=== PATIENT | female | born 1955 | race Caucasian/White ===

== ENCOUNTER → 2018-06-09 | Outpatient (REF) ==
[~2018-06-09] MED LIST: ALPR-434 PO; IOPAMIDOL 76% 100 ML INFUS BTL 100 ML ONE; LORA-1455 PO; NEBI5TAB PO; SERT-1 PO; TRAZ50TA34 PO
--- NOTE | 2018-06-09 10:00 | RADIOLOGY IMAGING REPORT ---
FACILITY: [facility] PATIENT NAME: Luciano Hastings : 1955 MR: [id number] V: [id number] EXAM DATE: ORDERING PHYSICIAN: EMI JOHNSON TECHNOLOGIST: Location: [facility] - [place] Patient: Luciano Hastings : 1955 Visit/Account:[id number] Date of Sevice: 06/09/2018 CT ABDOMEN PELVIS W/ CON HISTORY: Abdominal pain x8 months. Possible hernias. TECHNIQUE: Following administration of IV contrast contiguous axial images acquired through the abdom en/pelvis. Coronal and sagittal reformatting also performed. One of the following dose optimization techniques was utilized in the performance of this exam: Automated exposure control; adjustment of t he mA and/or kV according to the patient's size; or use of an iterative reconstruction technique. S pecific details can be referenced in the facility's radiology CT exam operational policy. CONTRAST: 70 mL Isovue-370 COMPARISON: None. FINDINGS: Visualized lung bases: Negative. Hepatobiliary: There is a 9 mm indeterminate hypodense nodule in the posterior liver (axial image 22 series 2, coronal image 62). There is no evidence of enhancement. There is pneumobilia likely related to a remote sphincterotomy. Patient status post cholecystectomy. A loop of small bowel insinuates into the benjie hepatis. Spleen: Several small calcified granulomas noted in the spleen. Adrenals: Right adrenal gland normal. There is a relatively low density circumscribed mass in the l eft adrenal gland measuring 2.3 x 1.8 cm. Postcontrast it measures 48 Hounsfield units. Pancreas: Negative. Kidneys ureters or bladder: Tiny subcentimeter cyst noted left kidney. Kidneys are otherwise normal. Ureters and urinary bladder unremarkable. Genitalia: Negative. GI: Small bowel unremarkable. Colon is likewise unremarkable with moderate fecal material noted. N o evidence of diverticuli. Appendix is retrocecal and normal. Vessels/spaces/nodes: Small lymph nodes are seen along the mesenteric root (axial images 80-91 serie s 2) with largest measuring approximately 1 cm diameter. They are within normal range in size. Ther e is no retroperitoneal adenopathy. Bones/soft tissues: Osseous structures unremarkable for patient age. Mild reactive endplate changes noted in lower thoracic spine. No focal disc space narrowing. There is an no evidence of inguinal or abdominal hernias. Additional findings: None pertinent. IMPRESSION: No acute pathology identified. Remote cholecystectomy with probable sphincterotomy with pneumobilia noted. 9 mm hypodense hepatic nodule which is indeterminate although probably benign. Left adrenal mass 2.8 cm maximum dimension. This might represent a benign adrenal adenoma although p rimary adrenal neoplasm or metastasis cannot be excluded (although statistically less likely). Recom mend follow-up adrenal MRI or CT with and without contrast. Please specify adrenal adenoma protocol. Examination otherwise unremarkable. No evidence of hernia which was a clinical concern. Report Dictated By: Fletcher Mosquera MD at 06/09/2018 9:40 AM Report E-Signed By: Fletcher Mosquera MD at 06/09/2018 9:55 AM WSN:[id number]
== END ==
LOC: CT 06-08 01:44
PROVIDERS: ATTEND Nurse Practitioner
DX: R10.32 Left lower quadrant pain (principal)
CPT/HCPCS: 74177; Q9967

== ENCOUNTER → 2018-06-30 | Outpatient (REF) ==
[~2018-06-30] MED LIST changes: -IOPAMIDOL 76% 100 ML INFUS BTL 100 ML ONE
--- NOTE | 2018-06-30 16:09 | RADIOLOGY IMAGING REPORT ---
FACILITY: [facility] - [place] PATIENT NAME: Luciano Hastings : 1955 MR: [id number] V: [id number] EXAM DATE: ORDERING PHYSICIAN: NORMA FRANCO TECHNOLOGIST: Location: [facility] - [place] Patient: Luciano Hastings : 1955 Visit/Account:[id number] Date of Sevice: 06/30/2018 MR ABDOMEN W/O CON HISTORY: Adrenal mass found on CT ADDITIONAL HISTORY: None. TECHNIQUE: TECHNIQUE: Multiplanar multisequence magnetic resonance imaging of the abdomen without i ntravenous contrast. CONTRAST: None COMPARISON: CT of abdomen pelvis June 09, 2018 FINDINGS: Visualized lung bases: Grossly unremarkable. Liver: There is a 6 mm cyst in the posterior lateral right lobe the liver there is an additional subt le 1 cm mass posterior aspect of the dome of the liver demonstrates weak increased T2 signal intensit y and T1 hypointensity. There is no restricted diffusion. This is not ideally characterized given t he lack of contrast. Gallbladder: Surgically absent Bile ducts: Pneumobilia as seen on the recent CT Spleen: Negative. Adrenal glands: There is a 2.3 x 1.6 x 2.6 cm left adrenal mass. This mass demonstrates signal dropo ut on the opposed phase imaging which would be consistent with an adenoma. Right adrenal gland appea rs unremarkable Pancreas: Negative. Kidneys: Negative. Vessels/spaces/nodes: No bulky adenopathy or ascities. Visualized GI: Grossly unremarkable. Bones/soft tissues: Unremarkable. IMPRESSION: There is a 2.3 x 1.6 x 2.6 cm left adrenal mass with signal characteristics consistent with an adenom a 6. Moment or cyst posterior right lobe the liver 1 cm mass posterior dome of the liver which is not ideally characterize given the lack of contrast. This likely represents an incidental hemangioma however other solid mass is not totally excluded if o f concern this could be further evaluated with ultrasound or three-phase CT of the liver Post surgical changes from a cholecystectomy Report Dictated By: Kailey Agarwal MD at 06/30/2018 3:41 PM Report E-Signed By: Kialey Agarwal MD at 06/30/2018 4:04 PM WSN:[email or web address]
== END ==
LOC: MRI 00:49
PROVIDERS: ATTEND Nurse Practitioner
DX: E27.9 Disorder of adrenal gland, unspecified (principal)
CPT/HCPCS: 74181

== ENCOUNTER → 2018-07-14 | Outpatient (REF) ==
--- NOTE | 2018-07-14 10:54 | RADIOLOGY IMAGING REPORT ---
FACILITY: [facility] [place] PATIENT NAME: Luciano Hastings : 1955 MR: [id number] V: [id number] EXAM DATE: ORDERING PHYSICIAN: NORMA FRANCO TECHNOLOGIST: Location: Patient: Luciano Hastings : 1955 Visit/Account:[id number] Date of Sevice: 07/14/2018 LIVER HISTORY: Liver mass on MRI, pain COMPARISON: MRI abdomen June 30, [address] abdomen June 09, 2018 FINDINGS: Gallbladder: Absent Liver: In the anterior aspect of the right lobe in the anterior aspect of the right lobe the liver th ere is a 6 x 7 mm slightly echogenic nodule. This is not well-seen on the prior CT nor on the prior MR. In the lateral aspect of the right lobe there is a 6 mm echogenic nodule which likely represents the area of increased T2 signal intensity on recent MR may represent hemangioma although other solid lesions not excluded. The 1 cm mass posterior aspect of the dome of the liver seen on the recent MR is not well seen sonographically.. This was hypoattenuating on the recent CT. This may represent a hemangioma although additional solid lesions not excluded. Common duct: Normal, 2.4 mm diameter. Pancreas: Partially obscured by bowel, visualized aspects unremarkable. Right kidney: Negative. Upper abdominal aorta and IVC: Patent. Ascites: None visualized. IMPRESSION: There are two echogenic masses seen in the right lobe the liver one is anterior and one is lateral. The anterior lesion is not seen on the prior CT or MR. The lateral mass measuring 6 mm is present on the prior MR demonstrated an area of increased T2 signal intensity. The 1 cm mass posterior aspect dome liver cyst seen on the recent MR demonstrating weak increased T2 signal intensity was hypoattenu ating on the recent CT. This was not well-seen by ultrasound today. In light of the above findings either a three phase CT of the liver or an MR of the liver with and wi thout contrast recommended since the prior MR was done without contrast in the prior CT was single ph ase. Report Dictated By: Kailey Agarwal MD at 07/14/2018 10:07 AM Report E-Signed By: Kailey Agarwal MD at 07/14/2018 10:49 AM WSN:[email or web address]
== END ==
LOC: US 00:30
PROVIDERS: ATTEND Nurse Practitioner
DX: R10.9 Unspecified abdominal pain (principal); K76.9 Liver disease, unspecified
CPT/HCPCS: 76705

== ENCOUNTER → 2018-08-05 | Outpatient (REF) ==
[~2018-08-05] MED LIST changes: +GADOBENATE 529MG/1ML 15ML VIAL IVP ONE; +NS(*) 0.9% 50 ML BAG 0 ML ONE; +NS(*) 0.9% 50 ML BAG 50 ML ONE
--- NOTE | 2018-08-05 15:36 | RADIOLOGY IMAGING REPORT ---
FACILITY: [facility] PATIENT NAME: Luciano Hastings : 1955 MR: [id number] V: [id number] EXAM DATE: ORDERING PHYSICIAN: NORMA FRANCO TECHNOLOGIST: Location: [facility] - [place] Patient: Luciano Hastings : 1955 Visit/Account:[id number] Date of Sevice: 08/05/2018 MR ABDOMEN W & W/O CON COMPARISON: Noncontrast MR abdomen 06/30/2018, 07/14/2018 ultrasound , postcontrast CT abdomen 9 HISTORY: Two echogenic masses right lobe liver found on prior ultrasounds. Remote history of cholec ystectomy. TECHNIQUE: Pre and post contrast multiplanar MRI of the abdomen utilizing T1 weighted and fluid sens itive sequences. Diffusion-weighted imaging was performed. CONTRAST: 13 mL gadopentetate intravenously MRI ABDOMEN FINDINGS: LIVER: Normal size, morphology and background signal intensity with heterogeneous arterial/early pha se enhancement throughout the liver probably due to perfusional variation. *Enhancing segment six liver lesion with T2 signal on series 11 image 18 and enhancement isointense t o blood pool on subsequent images consistent with a flash filling hemangioma. Mild restricted diffus ion. This measures only about 6 x 6 mm in size on series 13 image 33. *Subtle, vague focus of increased T2 signal in segment seven more medially measuring about 7 x 11 mm on series 11 image 23, with some enhancement isointense to blood pool on a couple of venous phase sca ns, for example series 20 image 20, not seen on all scans probably due to adjacent diaphragmatic kyrie on artifact. Mild restricted diffusion. This is also most consistent with a hemangioma. *Subtle T2 hyperintense nonenhancing 3 mm lesion in segment five anteriorly series 2 image 17 consist ent with a benign cyst. BILIARY: Absent gallbladder. No intra-or extrahepatic bile duct dilatation. SPLEEN: Unremarkable. Normal size. PANCREAS: No solid lesions or evidence of pancreatitis or ductal dilatation. 3 mm cystic lesion ky sing from the nondilated main pancreatic duct mid pancreatic body series 2 image 12, series 3 image 2 3 with a similar 3 mm lesion along the dorsal margin of the uncinate process series 2 image 15, serie s 3 image 19. These may be focally dilated side branch radicals or tiny cystic neoplasms. ADRENALS: Hypoenhancing 2.2 cm left adrenal lesion with signal dropout on opposed phase images again consistent with a benign adenoma. KIDNEYS: Unremarkable. GI/MESENTERY: Unremarkable. VASCULAR: Unremarkable. LYMPH NODES: No adenopathy. BONES: Unremarkable. OTHER: Negative. IMPRESSION: 1. Two subtle right lobe liver lesions, one in segment six and one in segment seven, both with featu res of hemangioma. 2. Left adrenal adenoma. 3. Cholecystectomy. 4. 3 mm cystic lesions, pancreatic uncinate process and body. Based on recommendations from the ACR , single 2 year follow-up imaging with pancreas protocol MRI (with and without contrast), is recomme nded to demonstrate stability. If there is no interval change, no further surveillance is recommende d. Reference: ACR. Management of Incidental Pancreatic Cysts: A White Paper of the ACR Incidental Findi ngs Committee JACR. Jul, 2016. Report Dictated By: Ian Cardenas at 08/05/2018 3:00 PM Report E-Signed By: Ian Cardenas at 08/05/2018 3:30 PM WSN:[id number]
== END ==
LOC: MRI 08-03 00:26
PROVIDERS: ATTEND Nurse Practitioner
DX: D35.02 Benign neoplasm of left adrenal gland (principal); Z90.49 Acquired absence of other specified parts of digestive tract; K76.89 Other specified diseases of liver
CPT/HCPCS: 74183; A9577; J7050

== ENCOUNTER → 2018-08-24 | Outpatient (REF) | payer SELFPAY ==
[~2018-08-24] MED LIST changes: -GADOBENATE 529MG/1ML 15ML VIAL IVP ONE; -NS(*) 0.9% 50 ML BAG 0 ML ONE; -NS(*) 0.9% 50 ML BAG 50 ML ONE
[2018-08-24 18:47] LABS: PLATELET COUNT, AUTOMATED 223 K/uL (150-450)
== END ==
LOC: ZZSTITCHES 18:22
PROVIDERS: ATTEND Physician Assistant
DX: R07.89 Other chest pain (principal)
CPT/HCPCS: 82040; 82247; 82310; 82374; 82435; 82565; 82947; 84075; 84132; 84155; 84295; 84450; 84460; 84484; 84520; 85025

== ENCOUNTER → 2018-10-25 | Outpatient (REF) ==
[~2018-10-25] MED LIST changes: +METF-450 PO; -TRAZ50TA34 PO; +TRAZ50TA52 PO
--- NOTE | 2018-10-25 10:55 | EKG ---
FACILITY: [facility] PATIENT NAME: MAICOL SMITH : [id number] MR: [id number] V: [id number] EXAM DATE: ORDERING PHYSICIAN: NORMA FRANCO TECHNOLOGIST: LETICIA Rod Reason : PRE-OP Blood Pressure : / mmHG Vent. Rate : 056 BPM Atrial Rate : 056 BPM P-R Int : 140 ms QRS Dur : 092 ms QT Int : 462 ms P-R-T Axes : 014 083 081 degrees QTc Int : 445 ms Sinus bradycardia Otherwise normal ECG When compared with ECG of 15-JUN-2013 14:10, No significant change was found Confirmed by Christian Mehta ([id number]) on 10/26/2018 12:36:38 AM Referred By: JOAN Confirmed By:Christian Schumacher
== END ==
LOC: RESP 10:11
PROVIDERS: ATTEND Nurse Practitioner
DX: Z01.810 Encounter for preprocedural cardiovascular examination (principal)
CPT/HCPCS: 93005

== ENCOUNTER → 2018-10-28 | Outpatient (CLI) | payer OTHER ==
--- NOTE | 2018-10-28 13:53 | RADIOLOGY IMAGING REPORT ---
FACILITY: [facility] [place] PATIENT NAME: Luciano Hastings : 1955 MR: [id number] V: [id number] EXAM DATE: ORDERING PHYSICIAN: SILVANO MARTINEZ TECHNOLOGIST: Location: [facility] Patient: Luciano Hastings : 1955 Visit/Account:[id number] Date of Sevice: 10/28/2018 Clinical history: Screening, postmenopausal. Comparison: None. LUMBAR SPINE: The bone mineral density (BMD) measured from L1-L4 correlates with a Z-score of -1.2 and a T-score of -2.7 which is osteoporosis as defined by the World Health Organization. The corresponding risk of f racture in the lumbar spine is increased 6-8 times compared with a young adult reference population. HIP: Bone mineral density (BMD) measured in the left total hip region correlates with a Z-score of -0.1 an d a T-score of -1.2 which is osteopenia as defined by the World Health Organization. The correspondi ng risk of fracture in the hip is increased 2-3 times compared with a young adult reference populatio n. Bone mineral density (BMD) measured in the left femoral neck correlates with a Z-score of -0.5 and a T-score of -1.9 which is osteopenia as defined by the World Health Organization. The corresponding r isk of fracture in the hip is increased 3-4 times compared with a young adult reference population. Bone mineral density (BMD) measured in the left Femoral Neck region measures 0.779 g/cm2. Impression: 1. Lumbar spine: Osteoporosis. 2. Left total hip: Osteopenia. 3. Left femoral neck: Osteopenia 4. Left femoral neck Bone Mineral Density is 0.779 g/cm2 The next DEXA scan of this patient should include the following sites: Lumbar spine and left hip. FRAX? WHO Fracture Risk Assessment Tool link: http://www.shef.ac.uk/FRAX/tool.jsp?locationValue=9 PLEASE NOTE: 1) The World Health Organization defines low BMD as follows: T-score Normal > -1 Osteopenia < -1 and > -2.5 Osteoporosis < -2.5 without fractures Established osteoporosis < -2.5 with fractures 2) In general, you may wish to consider: Diagnosis Treatment Follow-up DEXA Normal BMD Prevention 2-3 years Osteopenia Prevention/therapy 1-2 years Osteoporosis Therapy Yearly 3) Fracture risk estimated from the T-score is more accurate for vertebral fractures (often spontane ous) than for hip fractures. Report Dictated By: Shante Campbell MD at 10/28/2018 1:26 PM Report E-Signed By: Shante Campbell MD at 10/28/2018 1:45 PM WSN:[id number]
--- NOTE | 2018-10-29 11:10 | RADIOLOGY IMAGING REPORT ---
FACILITY: [facility] PATIENT NAME: MAICOL SMITH : [id number] MR: [id number] V: [id number] EXAM DATE: ORDERING PHYSICIAN: SILVANO MARTINEZ TECHNOLOGIST: Amber Elaine PROCEDURE:BILATERAL DIAGNOSTIC DIGITAL MAMMOGRAM WITH CAD ASSISTED INTERPRETATION & 3D TOMOSYNTHESIS REASON FOR STUDY: Bilateral breast pain FAMILY HISTORY OF BREAST CANCER: None BREAST PROCEDURES/TREATMENTS: None COMPARISON STUDIES: None MAMMOGRAM VIEWS OBTAINED: Bilateral 2D & 3D full field CC & MLO projections & 2D & 3D spot compression views in the Left CC & MLO projections. BREAST DENSITY: There are scattered areas of fibroglandular densities throughout the breasts. MAMMOGRAM FINDINGS: There is a focal patchy area of increased density in the upper outer quadrant of the Left breast in the middle third. This appeared partially compressible on spot compression views. ULTRASOUND BILATERAL BREASTS RIGHT BREAST: AREA SCANNED: The 2-4 o'clock position of the Right breast was imaged in the area of patient's pain. ULTRASOUND FINDINGS: Area scanned revealed no sonographic abnormality. LEFT BREAST: AREA SCANNED: The 6-3 o'clock position Left breast ULTRASOUND FINDINGS: No sonographic abnormality. Specifically no abnormality was identified to account for the area of increased density in the upper outer quadrant of the Left breast which may simply represent islands of fibroglandular tissue. However, a 6 month follow up Left mammogram is recommended unless clinical findings warrant more immediate attention. DIAGNOSTIC CATEGORY 3--PROBABLY BENIGN FINDING. RECOMMENDATIONS: SIX MONTH FOLLOW-UP DIAGNOSTIC MAMMOGRAM: LEFT BREAST. IMPRESSION: BIRADS 3: Probably benign finding. A 6 month follow up Left mammogram is recommended as described. Clinical follow up recommended for patient's breast pain. Dictated by: Kailey Agarwal M.D. on 10/28/2018 at 17:13 Transcribed by: JO ANN on 10/29/2018 at 10:36 Approved by: Kailey Agarwal M.D. on 10/29/2018 at 11:06 [facility]
--- NOTE | 2018-10-29 11:10 | RADIOLOGY IMAGING REPORT ---
[place] [facility] [place] MAICOL SMITH : [id number] MR: [id number] V: [id number] EXAM DATE: [id number] ORDERING PHYSICIAN: SILVANO MARTINEZ TECHNOLOGIST: Carl Middleton RDMS, ZAINA PROCEDURE:BILATERAL DIAGNOSTIC DIGITAL MAMMOGRAM WITH CAD ASSISTED INTERPRETATION & 3D TOMOSYNTHESIS REASON FOR STUDY: Bilateral breast pain FAMILY HISTORY OF BREAST CANCER: None BREAST PROCEDURES/TREATMENTS: None COMPARISON STUDIES: None MAMMOGRAM VIEWS OBTAINED: Bilateral 2D & 3D full field CC & MLO projections & 2D & 3D spot compression views in the Left CC & MLO projections. BREAST DENSITY: There are scattered areas of fibroglandular densities throughout the breasts. MAMMOGRAM FINDINGS: There is a focal patchy area of increased density in the upper outer quadrant of the Left breast in the middle third. This appeared partially compressible on spot compression views. ULTRASOUND BILATERAL BREASTS RIGHT BREAST: AREA SCANNED: The 2-4 o'clock position of the Right breast was imaged in the area of patient's pain. ULTRASOUND FINDINGS: Area scanned revealed no sonographic abnormality. LEFT BREAST: AREA SCANNED: The 6-3 o'clock position Left breast ULTRASOUND FINDINGS: No sonographic abnormality. Specifically no abnormality was identified to account for the area of increased density in the upper outer quadrant of the Left breast which may simply represent islands of fibroglandular tissue. However, a 6 month follow up Left mammogram is recommended unless clinical findings warrant more immediate attention. DIAGNOSTIC CATEGORY 3--PROBABLY BENIGN FINDING. RECOMMENDATIONS: SIX MONTH FOLLOW-UP DIAGNOSTIC MAMMOGRAM: LEFT BREAST. IMPRESSION: BIRADS 3: Probably benign finding. A 6 month follow up Left mammogram is recommended as described. Clinical follow up recommended for patient's breast pain. Dictated by: Kailey Agarwal M.D. on 10/28/2018 at 17:13 Approved by: Kailey Agarwal M.D. on 10/29/2018 at 11:06 [facility]
== END ==
LOC: MAMO 07:32
PROVIDERS: ATTEND Obstetrics & Gynecology
DX: Z13.820 Encounter for screening for osteoporosis (principal); N64.4 Mastodynia; M85.89 Other specified disorders of bone density and structure, multiple sites
CPT/HCPCS: 77062; 77066; 77080

== ENCOUNTER 2018-11-12 01:38 | Day surgery (SDC) | payer OTHER ==
[~2018-11-12] VITALS: Ht 152.4 cm; Wt 64.9 kg
[2018-11-12] VITALS (10 sets, daily range): BP systolic 95–158; BP diastolic 61–83
[~2018-11-12 01:38] MED LIST changes: +ATOR10TA24 PO
[2018-11-12] MEDS: LIDOCAINE/SOD BICARB 8.4% SYR ID ONE (07:41)
[2018-11-12] MEDS: NORMOSOL R SOLN(*) 1000 ML BAG 1,000 ML IV PRN (07:41)
[2018-11-12] MEDS ORDERED: ESOM40CA42 PO (08:08)
[2018-11-12] MEDS: GLYCOPYRROLATE 0.2MG/ML 1 ML INJ IVP ONE (09:01)
[2018-11-12] MEDS ORDERED: PROPOFOL EMUL(*) 10MG/ML 20 ML 60 ML ONE (09:18)
--- NOTE | 2018-11-12 09:48 | Short(Outpt) Discharge Summary ---
Discharge Summary Reason for Hosp/Final Diag: (1) Abdominal pain Hospital Course & Plan: pt presented for egd and colonoscopy. she tolerated the procedures well and will be discharged home when criteria met. Departure Discharge to: Home Discharge Instructions Home Meds Reported Medications Esomeprazole Magnesium (NEXIUM) 40 Mg Capsule.dr, 1 CAP PO QDAY, CAP 11/12/18 Atorvastatin Calcium (LIPITOR) 10 Mg Tablet, 1 TAB PO QDAY, TAB 11/08/18 Metformin Hcl (METFORMIN HCL) 500 Mg Tablet, 1 TAB PO BID, TAB 10/07/18 Nebivolol Hcl (BYSTOLIC) 5 Mg Tablet, 5 MG PO DAILY 06/15/13 Diet: Regular Activity: As Tolerated Special Instructions: we will call you in 10 days with biopsy results EMI JOHNSON Nov 12, 2018 09:48
== END 2018-11-12 11:15 | disposition home or self-care (01) ==
LOC: OR 01:38
PROVIDERS: ATTEND Surgery
DX: K29.70 Gastritis, unspecified, without bleeding (principal); I10 Essential (primary) hypertension; E11.9 Type 2 diabetes mellitus without complications; Z79.84 Long term (current) use of oral hypoglycemic drugs; R10.9 Unspecified abdominal pain; G89.29 Other chronic pain
CPT/HCPCS: 36416; 82948; 87077; 88305; 88313; 88342; J2704; J3490